=== PATIENT | female | born 1975 | race Hispanic/Latino ===

== ENCOUNTER 2021-11-14 19:17 | Emergency (ER) | payer BC ==
[2021-11-14] MEDS ORDERED: traMADol HCl 50 MG TAB ONE (20:18)
[2021-11-14] MEDS ORDERED: Ondansetron ODT 4 MG TAB ONE (20:18)
== END 2021-11-14 22:50 | disposition home or self-care (01) ==
LOC: MADERS 19:17
DX: S43.401A Unspecified sprain of right shoulder joint, initial encounter (principal); W19.XXXA Unspecified fall, initial encounter; Z79.899 Other long term (current) drug therapy
CPT/HCPCS: Q0162